=== PATIENT | male | born 1980 | race Two or more races ===

== ENCOUNTER 2021-09-21 16:33 | Emergency (ER) | payer OTHER ==
[~2021-09-21] VITALS: Ht 175.3 cm; Wt 65.8 kg
[2021-09-21 16:39] VITALS: BP 119/89
--- NOTE | 2021-09-21 16:42 | NUR ---
PT WAS SENT TO LOBBY TO WAIT.
[2021-09-21 17:19] LABS: BASOPHILS % (AUTO) 0.7 % (0.0-2.0); EOSINOPHILS % (AUTO) 0.2 % (0.0-4.0); HEMATOCRIT 44.9 % (36-52); HEMOGLOBIN 15.1 g/dL (12.0-18.0); LYMPHOCYTES # (AUTO) 0.8 K/uL (2.0-11.5); LYMPHOCYTES % (AUTO) 12.7 % (20.5-51.1); MEAN CORPUSCULAR HEMOGLOBIN 29 pg (27-31); MEAN CORPUSCULAR HGB CONC 34 g/dL (33-37); MEAN CORPUSCULAR VOLUME 87.6 fL (80-94); MONOCYTES # (AUTO) 0.4 K/uL (0.8-1.0); MONOCYTES % (AUTO) 6.4 % (1.7-9.3); NEUTROPHILS # (AUTO) 5.3 K/uL (1.8-7.7); PLATELET COUNT (AUTO) 289 K/uL (140-450); RED BLOOD CELL COUNT(AUTO) 5.12 MIL/uL (4.20-6.10); WHITE BLOOD COUNT (AUTO) 6.6 K/uL (4.8-10.8)
[2021-09-21 17:41] LABS: ALBUMIN 4.5 g/dL (3.4-5.0); ANION GAP 13.4 (8-16); CARBON DIOXIDE 27.3 mmol/L (21-32); CREATININE 0.9 mg/dL (0.6-1.3); POTASSIUM 3.7 mmol/L (3.5-5.1)
--- NOTE | 2021-09-21 17:59 | NUR ---
41 Y.O M BIB SELF C/O CHEST PAIN X 6 DAYS NOW. 9/10 PAIN. TAKES HERBAL PILLS AT HOME; HAS THEM WITH HIM. PT RAYS THATTHE PAIN IS RADIATING TO HIS BACK. DENIES SOB AND N/V/D. A&OX4, SKIN INTACT, VITALS WNL, AND STAEDY GAIT. NKA NPM[facility]
--- NOTE | 2021-09-21 19:30 | NUR ---
PT TAKEN TO BED 4
[2021-09-21 19:47] LABS: PROTHROMBIN TIME 10.8 secs (10.8-13.4)
--- NOTE | 2021-09-21 20:09 | NUR ---
Dr. Lay at bedside for MSE
--- NOTE | 2021-09-21 20:09 | NUR ---
Dr. Lay examining patient.
[2021-09-21] MEDS ORDERED: IBUP-2213 PO (20:20)
[2021-09-21 20:35] VITALS: BP 114/69
== END 2021-09-21 20:34 | disposition home or self-care (01) ==
LOC: MED 16:33
DX: R07.89 Other chest pain (principal)
CPT/HCPCS: 36415; 71045; 80053; 83880; 84484; 85025; 85610; 85730; 93005; 99285

== ENCOUNTER 2022-04-24 10:36 | Emergency (ER) | payer OTHER ==
[~2022-04-24] VITALS: Ht 172.7 cm; Wt 66.2 kg
[~2022-04-24 10:36] MED LIST: IBUP-2213 PO
[2022-04-24 10:39] VITALS: BP 123/79
--- NOTE | 2022-04-24 10:51 | NUR ---
ASSUMED PATIENT CARE, NURSING ASSESSMENT COMPLETED.
[2022-04-24] MEDS ORDERED: NAPR-1704 PO (11:19)
[2022-04-24 11:24] VITALS: BP 123/79
== END 2022-04-24 11:24 | disposition home or self-care (01) ==
LOC: MED 10:36
DX: R07.89 Other chest pain (principal); M54.50 Low back pain, unspecified; Z79.1 Long term (current) use of non-steroidal anti-inflammatories (NSAID)
CPT/HCPCS: 93005; 99283

== ENCOUNTER 2022-05-18 04:35 | Emergency (ER) | payer OTHER ==
[~2022-05-18] VITALS: Ht 172.7 cm; Wt 65.8 kg
[~2022-05-18 04:35] MED LIST changes: +NAPR-1704 PO
[2022-05-18 04:45] VITALS: BP 122/71
--- NOTE | 2022-05-18 04:45 | NUR ---
TO BED AMBULATORY
--- NOTE | 2022-05-18 04:55 | NUR ---
Dr. Alexander examining patient.
--- NOTE | 2022-05-18 05:03 | NUR ---
xray at bedside
[2022-05-18 05:24] LABS: BASOPHILS % (AUTO) 0.7 % (0.0-2.0); EOSINOPHILS # (AUTO) 0.1 K/uL (0-0.4); EOSINOPHILS % (AUTO) 1.7 % (0.0-4.0); HEMATOCRIT 44.3 % (36-52); HEMOGLOBIN 14.7 g/dL (12.0-18.0); LYMPHOCYTES % (AUTO) 32.6 % (20.5-51.1); MEAN CORPUSCULAR HEMOGLOBIN 30 pg (27-31); MEAN CORPUSCULAR HGB CONC 33 g/dL (33-37); MEAN CORPUSCULAR VOLUME 89.6 fL (80-94); MONOCYTES # (AUTO) 0.6 K/uL (0.8-1.0); MONOCYTES % (AUTO) 9.7 % (1.7-9.3); NEUTROPHILS # (AUTO) 3.4 K/uL (1.8-7.7); NEUTROPHILS % (AUTO) 55.3 % (42.2-75.2); PLATELET COUNT (AUTO) 294 K/uL (140-450); RED BLOOD CELL COUNT(AUTO) 4.94 MIL/uL (4.20-6.10); RED CELL DISTRIBUTION WIDTH 13.5 % (11.6-13.7); WHITE BLOOD COUNT (AUTO) 6.1 K/uL (4.8-10.8)
[2022-05-18 05:45] LABS: ALBUMIN 4.3 g/dL (3.4-5.0); ANION GAP 11.3 (8-16); CARBON DIOXIDE 30.9 mmol/L (21-32); POTASSIUM 4.2 mmol/L (3.5-5.1); TOTAL BILIRUBIN 0.4 mg/dL (0.0-1.0)
[2022-05-18 05:56] LABS: FREE T4 (FREE THYROXINE) 0.97 ng/dL (0.76-1.46); THYROID STIMULATING HORMONE 4.11 uIU/mL (0.34-3.74)
--- NOTE | 2022-05-18 06:21 | NUR ---
ekg at bedside
[2022-05-18 06:40] VITALS: BP 122/71
--- NOTE | 2022-05-18 06:40 | NUR ---
Patient discharged with v/s stable. Written and verbal after care instructions given and explained. Patient verbalized understanding. Ambulatory with steady gait. All questions addressed prior to discharge. Advised to follow up with PMD.
== END 2022-05-18 06:40 | disposition home or self-care (01) ==
LOC: MED 04:35
DX: R07.9 Chest pain, unspecified (principal); R00.2 Palpitations; Z79.1 Long term (current) use of non-steroidal anti-inflammatories (NSAID)
CPT/HCPCS: 36415; 71045; 80053; 83880; 84439; 84443; 84484; 85025; 93005; 99285; Q0092

== ENCOUNTER 2022-09-05 15:10 | Emergency (ER) | payer OTHER ==
[~2022-09-05] VITALS: Ht 172.7 cm; Wt 56.4 kg
[2022-09-05 15:17] VITALS: BP 119/79; PULSE 110; RESP 20; TEMP 99.1; O2SAT 98
--- NOTE | 2022-09-05 15:27 | NUR ---
PT AMBULATED TO ED BED 7
--- NOTE | 2022-09-05 15:38 | NUR ---
MD ELLSWORTH AT BEDSIDE FOR EVALUATION
[2022-09-05] MEDS ORDERED: KETOROLAC 15 MG/ML VIAL IVP ONE (15:45)
[2022-09-05] MEDS ORDERED: NACL 0.9% 1,000 ML IV ONE (15:45)
--- NOTE | 2022-09-05 16:01 | NUR ---
41YO M PRESENTS W/ABD PRESSURE PAIN EPIGASTRIC RADIATING TO LOWER ABD X 3MTHS, OFF AND ON DIARRHEA, INCREASED TODAY. PT DENIES VOMITING, CHILLS, FEVER, FLU SYMPTOMS, URINARY SYMPTOMS, INJURY. PT STATES RECENT CHANGE IN DIET, HE STARTED A CLEANCE 3MTHS AGO WITH BLENDED JUICES AND HE NOTICED ABD PAIN STARTED. PT AOX4. SAFETY MAINTAINED.
[2022-09-05 16:06] LABS: BASOPHILS # (AUTO) 0.1 K/uL (0.00-0.22); BASOPHILS % (AUTO) 0.9 % (0.0-2.0); EOSINOPHILS % (AUTO) 0.1 % (0.0-4.0); HEMATOCRIT 40.7 % (36-52); HEMOGLOBIN 13.7 g/dL (12.0-18.0); LYMPHOCYTES # (AUTO) 0.9 K/uL (2.0-11.5); LYMPHOCYTES % (AUTO) 13.3 % (20.5-51.1); MEAN CORPUSCULAR HEMOGLOBIN 31 pg (27-31); MEAN CORPUSCULAR HGB CONC 34 g/dL (33-37); MEAN CORPUSCULAR VOLUME 90.5 fL (80-94); MONOCYTES # (AUTO) 0.4 K/uL (0.8-1.0); MONOCYTES % (AUTO) 5.9 % (1.7-9.3); NEUTROPHILS # (AUTO) 5.6 K/uL (1.8-7.7); NEUTROPHILS % (AUTO) 79.8 % (42.2-75.2); PLATELET COUNT (AUTO) 289 K/uL (140-450); RED CELL DISTRIBUTION WIDTH 13.6 % (11.6-13.7)
[2022-09-05 16:38] LABS: ALBUMIN 4.3 g/dL (3.4-5.0); CARBON DIOXIDE 24.8 mmol/L (21-32); CREATININE 0.7 mg/dL (0.6-1.3); POTASSIUM 3.8 mmol/L (3.5-5.1); TOTAL BILIRUBIN 0.9 mg/dL (0.0-1.0)
[2022-09-05 17:48] VITALS: O2SAT 98
[2022-09-05] MEDS ORDERED: AMOX1TAB8 PO (18:16)
[2022-09-05] MEDS ORDERED: BEN10 PO (18:16)
--- NOTE | 2022-09-05 18:22 | NUR ---
The patient's care was reviewed and supervised by [facility], RN.
--- NOTE | 2022-09-05 18:28 | NUR ---
Patient discharged with v/s stable. Written and verbal after care instructions given and explained. Patient alert, oriented and verbalized understanding of instructions. Ambulatory with steady gait. All questions addressed prior to discharge. ID band removed. Patient advised to follow up with PMD. Rx of AMOXICILLIN,BENTYL given. Opportunity to ask questions provided and answered.
== END 2022-09-05 18:28 | disposition home or self-care (01) ==
LOC: MED 15:10
DX: K52.89 Other specified noninfective gastroenteritis and colitis (principal); Z79.899 Other long term (current) drug therapy
CPT/HCPCS: 36415; 74177; 80053; 81002; 83690; 85025; 96361; 96374; 99285; J1885; J7030; Q9967

== ENCOUNTER 2022-09-20 19:15 | Emergency (ER) | payer OTHER ==
[~2022-09-20] VITALS: Ht 172.7 cm; Wt 59.0 kg
[~2022-09-20 19:15] MED LIST changes: +AMOX1TAB8 PO; +BEN10 PO
[2022-09-20 19:35] VITALS: BP 115/70; PULSE 87; RESP 20; TEMP 97.4; O2SAT 99
--- NOTE | 2022-09-20 19:44 | NUR ---
to lobby following triage after EKG done
--- NOTE | 2022-09-20 20:51 | NUR ---
PT AMBULATED TO BED 11
--- NOTE | 2022-09-20 21:06 | NUR ---
DR EXAMINING THE PATIENT
--- NOTE | 2022-09-20 21:30 | NUR ---
X RAY AT THE BESIDE
[2022-09-20 21:39] LABS: BASOPHILS # (AUTO) 0.1 K/uL (0.00-0.22); EOSINOPHILS # (AUTO) 0.1 K/uL (0-0.4); EOSINOPHILS % (AUTO) 1.6 % (0.0-4.0); HEMATOCRIT 42.3 % (36-52); HEMOGLOBIN 14.3 g/dL (12.0-18.0); LYMPHOCYTES # (AUTO) 1.7 K/uL (2.0-11.5); LYMPHOCYTES % (AUTO) 28.2 % (20.5-51.1); MEAN CORPUSCULAR HEMOGLOBIN 31 pg (27-31); MEAN CORPUSCULAR HGB CONC 34 g/dL (33-37); MEAN CORPUSCULAR VOLUME 91.8 fL (80-94); MONOCYTES # (AUTO) 0.6 K/uL (0.8-1.0); MONOCYTES % (AUTO) 10.1 % (1.7-9.3); NEUTROPHILS # (AUTO) 3.6 K/uL (1.8-7.7); NEUTROPHILS % (AUTO) 59.1 % (42.2-75.2); PLATELET COUNT (AUTO) 306 K/uL (140-450); RED BLOOD CELL COUNT(AUTO) 4.61 MIL/uL (4.20-6.10); RED CELL DISTRIBUTION WIDTH 13.7 % (11.6-13.7)
[2022-09-20 21:53] LABS: ALBUMIN 4.1 g/dL (3.4-5.0); ANION GAP 11.6 (8-16); CARBON DIOXIDE 29.4 mmol/L (21-32); CREATININE 0.7 mg/dL (0.6-1.3); TOTAL BILIRUBIN 1.3 mg/dL (0.0-1.0)
[2022-09-20 22:17] LABS: PROTHROMBIN TIME 11.1 secs (10.8-13.4)
[2022-09-20 23:05] VITALS: BP 118/79; PULSE 83; RESP 13; TEMP 98; O2SAT 98
[2022-09-20] MEDS ORDERED: ACETAMINOPHEN EXTRA STRENGTH 500 MG TAB PO ONE (23:10)
--- NOTE | 2022-09-20 23:43 | NUR ---
Patient discharged with v/s stable. Written and verbal after care instructions given and explained. Patient verbalized understanding. Ambulatory with steady gait. All questions addressed prior to discharge. Advised to follow up with PMD. PT LEFT WITH HIS BELONIGINGS
== END 2022-09-20 23:43 | disposition home or self-care (01) ==
LOC: MED 19:15
DX: R07.89 Other chest pain (principal); Z79.899 Other long term (current) drug therapy
CPT/HCPCS: 36415; 71045; 80053; 83880; 84484; 85025; 85610; 85730; 93005; 99285

== ENCOUNTER 2022-10-19 10:49 | Emergency (ER) | payer OTHER ==
[~2022-10-19] VITALS: Ht 172.7 cm; Wt 60.0 kg
[2022-10-19 11:18] VITALS: BP 116/77; PULSE 92; RESP 20; TEMP 97.9; O2SAT 100
[2022-10-19] MEDS ORDERED: KETOROLAC 15 MG/ML VIAL IM ONE (12:00)
[2022-10-19] MEDS ORDERED: DICYCLOMINE 10 MG CAP PO ONE (12:00)
[2022-10-19 12:09] LABS: APPEARANCE,URINE CLEAR (CLEAR); BILIRUBIN,URINE NEGATIVE (NEGATIVE); BLOOD, URINE NEGATIVE (NEGATIVE); COLOR,URINE YELLOW (YELLOW); LEUKOCYTE ESTERASE ,URINE NEGATIVE (NEGATIVE); NITRITE, URINE NEGATIVE (NEGATIVE); PH,URINE 5.5 (5.0-9.0); PROTEIN,URINE NEGATIVE (NEGATIVE); UGLUCOSE NEGATIVE (NEGATIVE); UROBILINOGEN,URINE 0.2 EU/dL (0.2 - 1)
[2022-10-19 12:26] LABS: BASOPHILS # (AUTO) 0.1 K/uL (0.00-0.22); BASOPHILS % (AUTO) 1.1 % (0.0-2.0); EOSINOPHILS % (AUTO) 0.4 % (0.0-4.0); HEMOGLOBIN 15.4 g/dL (12.0-18.0); LYMPHOCYTES # (AUTO) 0.9 K/uL (2.0-11.5); LYMPHOCYTES % (AUTO) 14.8 % (20.5-51.1); MEAN CORPUSCULAR HEMOGLOBIN 31 pg (27-31); MEAN CORPUSCULAR HGB CONC 33 g/dL (33-37); MEAN CORPUSCULAR VOLUME 92.5 fL (80-94); MONOCYTES # (AUTO) 0.5 K/uL (0.8-1.0); MONOCYTES % (AUTO) 8.1 % (1.7-9.3); NEUTROPHILS # (AUTO) 4.7 K/uL (1.8-7.7); NEUTROPHILS % (AUTO) 75.6 % (42.2-75.2); PLATELET COUNT (AUTO) 250 K/uL (140-450); RED BLOOD CELL COUNT(AUTO) 4.97 MIL/uL (4.20-6.10); RED CELL DISTRIBUTION WIDTH 13.4 % (11.6-13.7); WHITE BLOOD COUNT (AUTO) 6.2 K/uL (4.8-10.8)
[2022-10-19 12:59] LABS: ALBUMIN 4.1 g/dL (3.4-5.0); ANION GAP 9.6 (8-16); CARBON DIOXIDE 27.3 mmol/L (21-32); CREATININE 0.7 mg/dL (0.6-1.3); POTASSIUM 3.9 mmol/L (3.5-5.1); TOTAL PROTEIN, SERUM 7.8 g/dL (6.4-8.2)
[2022-10-19] MEDS ORDERED: POLY17PD50 PO (13:16)
[2022-10-19 13:21] VITALS: BP 116/77; PULSE 92; RESP 20; TEMP 97.9; O2SAT 100
== END 2022-10-19 13:21 | disposition home or self-care (01) ==
LOC: MED 10:49
DX: R10.33 Periumbilical pain (principal); Z79.899 Other long term (current) drug therapy
CPT/HCPCS: 36415; 80053; 83690; 85025; 96372; 99283; J1885

== ENCOUNTER 2022-10-27 11:03 | Emergency (ER) | payer OTHER ==
[~2022-10-27] VITALS: Ht 172.7 cm; Wt 58.1 kg
[~2022-10-27 11:03] MED LIST changes: +POLY17PD50 PO
[2022-10-27 11:31] VITALS: BP 133/74; PULSE 99; RESP 20; TEMP 98.6; O2SAT 98
== END 2022-10-27 13:09 | disposition home or self-care (01) ==
LOC: MED 11:03
DX: R10.2 Pelvic and perineal pain (principal); Z11.3 Encounter for screening for infections with a predominantly sexual mode of transmission; Z79.899 Other long term (current) drug therapy
CPT/HCPCS: 81002; 86592; 87491; 99283

== ENCOUNTER 2022-11-16 13:35 | Emergency (ER) | payer OTHER ==
[~2022-11-16] VITALS: Ht 172.7 cm; Wt 58.5 kg
[2022-11-16 14:00] VITALS: BP 125/69; PULSE 94; RESP 16; TEMP 98.2; O2SAT 99
== END 2022-11-16 15:38 | disposition home or self-care (01) ==
LOC: MED 13:35
DX: G89.29 Other chronic pain (principal); R10.30 Lower abdominal pain, unspecified; R19.7 Diarrhea, unspecified; R68.83 Chills (without fever); Z79.899 Other long term (current) drug therapy
CPT/HCPCS: 99281

== ENCOUNTER 2023-04-19 15:39 | Emergency (ER) | payer OTHER ==
[~2023-04-19] VITALS: Ht 175.3 cm; Wt 65.8 kg
[2023-04-19 15:53] VITALS: BP 123/92; PULSE 103; RESP 19; TEMP 98.3; O2SAT 99
[2023-04-19 17:33] LABS: BASOPHILS % (AUTO) 0.3 % (0.0-2.0); EOSINOPHILS # (AUTO) 0.1 K/uL (0-0.4); EOSINOPHILS % (AUTO) 1.6 % (0.0-4.0); HEMATOCRIT 51.3 % (36-52); HEMOGLOBIN 17.5 g/dL (12.0-18.0); LYMPHOCYTES # (AUTO) 0.8 K/uL (2.0-11.5); LYMPHOCYTES % (AUTO) 15.3 % (20.5-51.1); MEAN CORPUSCULAR HEMOGLOBIN 30 pg (27-31); MEAN CORPUSCULAR HGB CONC 34 g/dL (33-37); MEAN CORPUSCULAR VOLUME 89.4 fL (80-94); MONOCYTES % (AUTO) 19.3 % (1.7-9.3); NEUTROPHILS # (AUTO) 3.4 K/uL (1.8-7.7); NEUTROPHILS % (AUTO) 63.5 % (42.2-75.2); PLATELET COUNT (AUTO) 218 K/uL (140-450); RED BLOOD CELL COUNT(AUTO) 5.74 MIL/uL (4.20-6.10); RED CELL DISTRIBUTION WIDTH 13.3 % (11.6-13.7); WHITE BLOOD COUNT (AUTO) 5.3 K/uL (4.8-10.8)
[2023-04-19 17:42] LABS: ANION GAP 12.9 (8-16); CALCIUM 9.3 mg/dL (8.5-10.1); CARBON DIOXIDE 25.1 mmol/L (21-32)
[2023-04-19 17:48] LABS: BILIRUBIN,DIRECT 0.2 mg/dL (0.0-0.3); TOTAL PROTEIN, SERUM 9.2 g/dL (6.4-8.2)
[2023-04-19 18:25] VITALS: BP 131/69; PULSE 89; RESP 19; O2SAT 99
== END 2023-04-19 18:25 | disposition home or self-care (01) ==
LOC: MED 15:39
DX: R10.30 Lower abdominal pain, unspecified (principal); R19.7 Diarrhea, unspecified; Z86.19 Personal history of other infectious and parasitic diseases; Z79.899 Other long term (current) drug therapy
CPT/HCPCS: 36415; 80048; 80076; 83690; 85025; 99283

== ENCOUNTER 2023-08-21 17:32 | Emergency (ER) | payer OTHER ==
[~2023-08-21] VITALS: Ht 172.7 cm; Wt 70.1 kg
[2023-08-21 17:43] VITALS: BP 121/86; PULSE 107; RESP 18; TEMP 98.7; O2SAT 99
[2023-08-21 18:32] VITALS: BP 124/80; PULSE 101; RESP 17; TEMP 98.4; O2SAT 95
[2023-08-21 19:41] LABS: BASOPHILS # (AUTO) 0.1 K/uL (0.00-0.22); BASOPHILS % (AUTO) 0.9 % (0.0-2.0); EOSINOPHILS % (AUTO) 0.1 % (0.0-4.0); HEMATOCRIT 45.7 % (36-52); HEMOGLOBIN 15.5 g/dL (12.0-18.0); LYMPHOCYTES # (AUTO) 0.9 K/uL (2.0-11.5); LYMPHOCYTES % (AUTO) 12.8 % (20.5-51.1); MEAN CORPUSCULAR HEMOGLOBIN 30 pg (27-31); MEAN CORPUSCULAR HGB CONC 34 g/dL (33-37); MEAN CORPUSCULAR VOLUME 89.5 fL (80-94); MONOCYTES # (AUTO) 0.5 K/uL (0.8-1.0); MONOCYTES % (AUTO) 6.7 % (1.7-9.3); NEUTROPHILS # (AUTO) 5.9 K/uL (1.8-7.7); NEUTROPHILS % (AUTO) 79.5 % (42.2-75.2); PLATELET COUNT (AUTO) 274 K/uL (140-450); RED BLOOD CELL COUNT(AUTO) 5.11 MIL/uL (4.20-6.10); RED CELL DISTRIBUTION WIDTH 13.1 % (11.6-13.7); WHITE BLOOD COUNT (AUTO) 7.4 K/uL (4.8-10.8)
[2023-08-21 19:48] LABS: ANION GAP 13.1 (8-16); CALCIUM 8.9 mg/dL (8.5-10.1); CARBON DIOXIDE 29.3 mmol/L (21-32); CREATININE 0.9 mg/dL (0.6-1.3); POTASSIUM 4.4 mmol/L (3.5-5.1)
[2023-08-21 19:55] LABS: ALBUMIN 4.3 g/dL (3.4-5.0); BILIRUBIN,DIRECT 0.1 mg/dL (0.0-0.3); TOTAL BILIRUBIN 0.7 mg/dL (0.0-1.0); TOTAL PROTEIN, SERUM 7.9 g/dL (6.4-8.2)
[2023-08-21] MEDS: NACL 0.9% 1,000 ML IV ONE (20:02)
[2023-08-21 22:01] LABS: APPEARANCE,URINE CLEAR (CLEAR); BILIRUBIN,URINE NEGATIVE (NEGATIVE); BLOOD, URINE NEGATIVE (NEGATIVE); COLOR,URINE YELLOW (YELLOW); LEUKOCYTE ESTERASE ,URINE NEGATIVE (NEGATIVE); NITRITE, URINE NEGATIVE (NEGATIVE); PROTEIN,URINE NEGATIVE (NEGATIVE); UGLUCOSE NEGATIVE (NEGATIVE); UROBILINOGEN,URINE 0.2 EU/dL (0.2 - 1)
== END 2023-08-21 22:47 | disposition home or self-care (01) ==
LOC: MED 17:32
DX: K62.5 Hemorrhage of anus and rectum (principal); Z79.899 Other long term (current) drug therapy
CPT/HCPCS: 36415; 74176; 80048; 80076; 81003; 83690; 85025; 96360; 99284; J7030